=== PATIENT | female | born 1945 | race Two or more races ===

== ENCOUNTER 2022-11-18 10:54 | Inpatient (IN) | payer OTHER ==
[~2022-11-18] VITALS: Ht 154.9 cm; Wt 57.2 kg
[2022-11-18] MEDS ORDERED: [UNRECOGNIZED DRUG - OTHER] PO (14:17)
[2022-11-18] MEDS ORDERED: SIMVASTA PO (14:18)
== END 2022-11-21 13:22 | disposition home or self-care (01) | DRG 743 ==
LOC: O/R 11-20 07:19 → OB/GYN 11-20 11:45
PROVIDERS: ADMIT Obstetrics & Gynecology Gynecologic Oncology; ATTEND Obstetrics & Gynecology Gynecologic Oncology
PROC: 0UT74ZZ Resection of Bilateral Fallopian Tubes, Percutaneous Endoscopic Approach (ICD-10-PCS; 2022-11-20)
PROC: 0UT24ZZ Resection of Bilateral Ovaries, Percutaneous Endoscopic Approach (ICD-10-PCS; 2022-11-20)
PROC: 0DBW4ZZ Excision of Peritoneum, Percutaneous Endoscopic Approach (ICD-10-PCS; 2022-11-20)
PROC: 07BD4ZZ Excision of Aortic Lymphatic, Percutaneous Endoscopic Approach (ICD-10-PCS; 2022-11-20)
PROC: 07BC4ZZ Excision of Pelvis Lymphatic, Percutaneous Endoscopic Approach (ICD-10-PCS; 2022-11-20)
PROC: 0DBU4ZZ Excision of Omentum, Percutaneous Endoscopic Approach (ICD-10-PCS; 2022-11-20)
PROC: 3E1M48Z Irrigation of Peritoneal Cavity using Irrigating Substance, Percutaneous Endoscopic Approach (ICD-10-PCS; 2022-11-20)
PROC: 0UT94ZZ Resection of Uterus, Percutaneous Endoscopic Approach (ICD-10-PCS; principal; 2022-11-20 20:15)
DX: D27.1 Benign neoplasm of left ovary (principal); D27.0 Benign neoplasm of right ovary; N72 Inflammatory disease of cervix uteri; Z20.822 Contact with and (suspected) exposure to COVID-19